=== PATIENT | female | born 1990 | race Caucasian/White ===

== ENCOUNTER 2023-05-02 20:57 | Emergency (ER) | payer BC, OTHER ==
[~2023-05-02] VITALS: Ht 177 cm; Wt 86.1 kg
[~2023-05-02 20:57] MED LIST: CIPR500T78 PO; HYDR-1231 PO
[2023-05-02] MEDS ORDERED: FAMOTIDINE INJ 20MG/2ML VIAL IVP STA (21:19)
[2023-05-02] MEDS ORDERED: ONDANSETRON INJECTION 4 MG/2 ML (SDV) IVP STA (21:19)
[2023-05-02] MEDS ORDERED: NS IV 1000 ML 1,000 ML IV STA ×2 (21:19→22:03)
--- NOTE | 2023-05-02 21:26 | ED General ---
General Stated Complaint: OB,VOMITING Source of Information: Patient History of Present Illness Date Seen by Provider: May 02, 2023 Time Seen by Provider: 20:59 Initial Comments 32-year-old female presenting with complaints of recurrent nausea and vomiting. She has some epigastric cramping now. She is approximately 11 weeks estimated gestational age G2, P1 with an estimated delivery date of November 17 through November 20. Her last menstrual cycle was February 14. She follows with maternal- medicine in [place]. She had been using some Zofran for nausea and vomiting during this but it caused her to be constipated so she stopped it. She was on a trip to [place] to fruit picker a trailer and on her way back she had been having recurrent nausea and vomiting and could not keep anything down. She did try the Zofran but it was not helping. She felt like she was getting dehydrated and was getting lightheaded and dizzy so she stopped here in [place] so that family could help watch her child and she came to the emergency department to be seen. She does have an appointment within the next 1 to 2 days with her maternal- OB doctor. She denies having any fever, chills, vaginal bleeding or spotting, pain with urination, diarrhea. Severity: Moderate Modifying Factors: worse with Eating Associated Systoms: No Chest Pain, No Cough, No Diaphoresis, No Fever/Chills, No Headaches, No Loss of Appetite, No Malaise; Nausea/Vomiting; No Rash, No Seizure, No Shortness of Air, No Syncope, No Weakness Allergies and Home Medications Allergies Coded Allergies: No Known Drug Allergies (Unverified , 06/12/14) Patient Home Medication List Home Medication List Reviewed: Yes Famotidine (Famotidine) 20 Mg Tablet, 20 MG PO DAILY Prescribed by: MARIA DEL CARMEN HALL on 05/02/232226 Metoclopramide HCl (Metoclopramide HCl) 10 Mg Tablet, 10 MG PO Q6H PRN for NAUSEA/VOMITING Prescribed by: MARIA DEL CARMEN HALL on 05/02/232226 Discontinued Medications Ciprofloxacin HCl (Cipro) 500 Mg Tablet, 500 MG PO BID Prescribed by: LAILA GRAVES on 06/12/14 0756 Hydrocodone Bit/Acetaminophen (Hydrocodone-Apap 5-325 Tablet) 1 Tab Tablet, 1-2 TAB PO Q6H PRN for PAIN Prescribed by: LAILA GRAVES on 06/12/14 0753 Review of Systems Review of Systems Constitutional: No chills, No fever EENTM: no symptoms reported Respiratory: no symptoms reported Cardiovascular: no symptoms reported Gastrointestinal: see HPI Genitourinary: no symptoms reported Musculoskeletal: no symptoms reported Skin: no symptoms reported Psychiatric/Neurological: No Symptoms Reported Past [id number]-[id number] Hx Patient Social History Tobacco Use?: No Use of E-Cig and/or Vaping dev: No Alcohol Use?: No Physical Exam Vital Signs Vital Signs - First Documented 05/02/23 21:58 Temp 37.1 Pulse 81 Resp 14 B/P (MAP) 122/69 (86) Pulse Ox 99 O2 Delivery Room Air Capillary Refill : Height, Weight, BMI Height: 5'11" Weight: 135lbs. oz. 61.987216ma; BMI Method: General Appearance: No Apparent Distress, WD/WN HEENT: PERRL/EOMI, Pharynx Normal; No Moist Mucous Membranes (Slightly dry mucous membranes) Neck: Full Range of Motion, Normal Inspection, Non Tender, Supple Respiratory: Chest Non Tender, Lungs Clear, Normal Breath Sounds, No Accessory Muscle Use, No Respiratory Distress Cardiovascular: Regular Rate, Rhythm, Normal Peripheral Pulses Gastrointestinal: Normal Bowel Sounds, No Pulsatile Mass, Soft; No Distended, No Guarding; Tenderness (Mild tenderness in the epigastric area) Rectal: Deferred Extremity: Normal Capillary Refill, Normal Inspection, No Pedal Edema Neurologic/Psychiatric: Alert, Oriented x3, saw repairer II-XII Norm as Tested Skin: Normal Color, Warm/Dry Progress/Results/Core Measures Suspected Sepsis SIRS Temperature: Pulse: Respiratory Rate: Laboratory Tests 05/02/23 21:25: White Blood Count 15.3H Blood Pressure / Mean: Laboratory Tests 05/02/23 21:25: Creatinine 0.61, Platelet Count 303, Total Bilirubin 0.4 Results/Orders Lab Results Laboratory Tests Test 05/02/23 21:10 05/02/23 21:25 Range/Units Urine Color YELLOW Urine Clarity CLEAR Urine pH 5.5 5-9 Urine Specific [place] >=1.030 1.016-1.022 Urine Protein TRACE H NEGATIVE Urine Glucose (UA) NEGATIVE NEGATIVE Urine Ketones 1+ H NEGATIVE Urine Nitrite NEGATIVE NEGATIVE Urine Bilirubin NEGATIVE NEGATIVE Urine Urobilinogen 0.2 < = 1.0 MG/DL Urine Leukocyte Esterase NEGATIVE NEGATIVE Urine RBC (Auto) 1+ H NEGATIVE Urine RBC 2-5 H /HPF Urine WBC NONE /HPF Urine Squamous Epithelial Cells 25-50 H /HPF Urine Crystals NONE /LPF Urine Bacteria FEW H /HPF Urine Casts NONE /LPF Urine Mucus SMALL H /LPF Urine Culture Indicated NO White Blood Count 15.3 H 4.3-11.0 10^3/uL Red Blood Count 4.51 3.80-5.11 10^6/uL Hemoglobin 13.6 11.5-16.0 g/dL Hematocrit 40 35-52 % Mean Corpuscular Volume 89 80-99 fL Mean Corpuscular Hemoglobin 30 25-34 pg Mean Corpuscular Hemoglobin Concent 34 32-36 g/dL Red Cell Distribution Width 12.1 10.0-14.5 % Platelet Count 303 130-400 10^3/uL Mean Platelet Volume 9.3 9.0-12.2 fL Immature Granulocyte % (Auto) 1 % Neutrophils (%) (Auto) 91 H 42-75 % Lymphocytes (%) (Auto) 4 L 12-44 % Monocytes (%) (Auto) 4 0-12 % Eosinophils (%) (Auto) 0 0-10 % Basophils (%) (Auto) 0 0-10 % Neutrophils # (Auto) 13.9 H 1.8-7.8 10^3/uL Lymphocytes # (Auto) 0.7 L 1.0-4.0 10^3/uL Monocytes # (Auto) 0.6 0.0-1.0 10^3/uL Eosinophils # (Auto) 0.0 0.0-0.3 10^3/uL Basophils # (Auto) 0.0 0.0-0.1 10^3/uL Immature Granulocyte # (Auto) 0.1 0.0-0.1 10^3/uL Neutrophils % (Manual) 92 % Lymphocytes % (Manual) 3 % Monocytes % (Manual) 5 % Platelet Estimate ADEQUATE Blood Morphology Comment OK Sodium Level 138 135-145 MMOL/L Potassium Level 3.7 3.6-5.0 MMOL/L Chloride Level 103 98-107 MMOL/L Carbon Dioxide Level 24 21-32 MMOL/L Anion Gap 11 5-14 MMOL/L Blood Urea Nitrogen 11 7-18 MG/DL Creatinine 0.61 0.60-1.30 MG/DL Estimat Glomerular Filtration Rate 122 BUN/Creatinine Ratio 18 Glucose Level 104 70-105 MG/DL Calcium Level 9.0 8.5-10.1 MG/DL Corrected Calcium 8.7 8.5-10.1 MG/DL Total Bilirubin 0.4 0.1-1.0 MG/DL Aspartate Amino Transf (AST/SGOT) 14 5-34 U/L Alanine Aminotransferase (ALT/SGPT) 11 0-55 U/L Alkaline Phosphatase 60 40-136 U/L Total Protein 7.8 6.4-8.2 GM/DL Albumin 4.4 3.2-4.5 GM/DL Lipase 21 8-78 U/L My Orders Orders - MARIA DEL CARMEN HALL MD Comprehensive Metabolic Panel (05/02/23 21:19) Lipase (05/02/23 21:19) Ua Culture If Indicated (05/02/23 21:19) Ed Iv/Invasive Line Start (05/02/23 21:19) Cbc And Automated Diff (05/02/23 21:19) Ns Iv 1000 Ml (Ns Iv 1000 Ml) (05/02/23 21:19) Ondansetron Injection (Ondansetron Inj (05/02/23 21:19) Famotidine Injection (Famotidine Injec (05/02/23 21:19) Manual Differential (05/02/23 21:25) Metoclopramide Injection (Metoclopramide (05/02/23 22:02) Ns Iv 1000 Ml (Ns Iv 1000 Ml) (05/02/23 22:03) Rx-Metoclopramide Tab (Rx-Reglan Tab) (05/02/23 22:35) Vital Signs/I&O 05/02/23 21:58 Temp 37.1 Pulse 81 Resp 14 B/P (MAP) 122/69 (86) Pulse Ox 99 O2 Delivery Room Air Capillary Refill : Progress Note #1: Progress Note Differential diagnosis includes UTI during , nausea vomiting hyperemesis due to , gastroenteritis. Establish peripheral IV access and send labs for complete blood count, compre hensive metabolic profile, lipase, urinalysis. Administer normal saline 1 L IV fluid bolus for hydration. Zofran 4 mg IV for nausea and vomiting, famotidine 20 mg IV to try and help with epigastric pain and likely gastritis. If not having improvement with IV Zofran will consider changing to a different antiemetic. Progress Note #2: Time: 22:00 Progress Note Labs and urinalysis are stable without evidence of acute infection or electrolyte imbalance. She does have elevation of her white blood cell count of 15.3 which may be partially due to stress of recurrent vomiting as well as pre gnancy and some hemoconcentration. She reports feeling better as the fluids have infused as well as getting a dose of the Zofran. She has not had any vomiting here in the ED. Will add on a second liter of IV fluids to try and help with hydration as well as ordering metoclopramide 10 mg IV to try and help with her nausea and vomiting and motility. She felt like the burning pain in the epigastric area was doing better after she received the Pepcid as well. Provided she does well as the fluids finished infusing and she has the Reglan on board will plan on discharging to home with prescription for Reglan and Pepcid. Have her keep her appointment in the next 1 to 2 days with her [facility]. Departure Impression Primary Impression: Hyperemesis affecting , antepartum Additional Impression: Constipation during in first trimester Disposition: HOME, SELF-CARE Condition: Improved Departure-Patient Inst. Decision time for Depature: 22:23 Referrals: NO,LOCAL PHYSICIAN (PCP/Family) Primary Care Physician Patient Instructions: Constipation, Adult ED, Hyperemesis Gravidarum (DC), Morning Sickness ED Add. Discharge Instructions: Try to keep sipping on fluids to stay hydrated. You could try using the metoclopramide or Reglan to see if that works better as a nausea medicine as well as a motility agent to help with your constipation. Try to drink apple juice and prune juice to help with the constipation. Continue to take the MiraLAX and check back with your OB doctor about any further treatments. Keep your appointment with OB doctor within the next 1 to 2 days. Scripts Metoclopramide HCl (Metoclopramide HCl) 10 Mg Tablet 10 MG PO Q6H PRN for NAUSEA/VOMITING for 5 Days, #20 TAB 0 Refills Prov: MARIA DEL CARMEN HALL MD 05/02/23 Famotidine (Famotidine) 20 Mg Tablet 20 MG PO DAILY for Gastritis for 30 Days, #30 TAB 0 Refills Prov: MARIA DEL CARMEN HALL MD 05/02/23 MARIA DEL CARMEN HALL MD May 02, 2023 21:25
[2023-05-02 21:34] LABS: BASOPHILS % (AUTO) 0 % (0-10); EOSINOPHILS % (AUTO) 0 % (0-10); HEMATOCRIT 40 % (35-52); HEMOGLOBIN 13.6 g/dL (11.5-16.0); LYMPHOCYTES # (AUTO) 0.7 10^3/uL (1.0-4.0); LYMPHOCYTES % (AUTO) 4 % (12-44); MEAN CORPUSCULAR HEMOGLOBIN 30 pg (25-34); MEAN CORPUSCULAR HGB CONC 34 g/dL (32-36); MEAN CORPUSCULAR VOLUME 89 fL (80-99); MEAN PLATELET VOLUME 9.3 fL (9.0-12.2); MONOCYTES # (AUTO) 0.6 10^3/uL (0.0-1.0); MONOCYTES % (AUTO) 4 % (0-12); NEUTROPHILS # (AUTO) 13.9 10^3/uL (1.8-7.8); NEUTROPHILS % (AUTO) 91 % (42-75); PLATELET COUNT 303 10^3/uL (130-400); WHITE BLOOD COUNT 15.3 10^3/uL (4.3-11.0)
[2023-05-02 21:35] LABS: BILIRUBIN,URINE NEGATIVE (NEGATIVE); CLARITY,URINE CLEAR; COLOR,URINE YELLOW; GLUCOSE, URINE (UA) NEGATIVE (NEGATIVE); KETONES,URINE 1+ (NEGATIVE); LEUKOCYTE ESTERASE ,URINE NEGATIVE (NEGATIVE); NITRITE,URINE NEGATIVE (NEGATIVE); PH,URINE 5.5 (5-9); PROTEIN,URINE TRACE (NEGATIVE)
[2023-05-02 21:46] LABS: BILIRUBIN,TOTAL 0.4 MG/DL (0.1-1.0); POTASSIUM 3.7 MMOL/L (3.6-5.0); TOTAL PROTEIN 7.8 GM/DL (6.4-8.2)
[2023-05-02 21:47] LABS: BACTERIA,URINE FEW /HPF; SQUAMOUS EPITHELIAL CELL,UR 25-50 /HPF
[2023-05-02 21:57] LABS: LYMPHOCYTES % (MANUAL) 3 %; MONOCYTES % (MANUAL) 5 %; NEUTROPHILS % (MANUAL) 92 %; PLATELET ESTIMATE ADEQUATE; RBC MORPH OK
[2023-05-02 21:58] VITALS: BP 122/69
[2023-05-02 21:58] LABS: ALBUMIN 4.4 GM/DL (3.2-4.5); CREATININE SERUM 0.61 MG/DL (0.60-1.30)
[2023-05-02] MEDS ORDERED: METOCLOPRAMIDE INJ 10 MG/2 ML IVP STA (22:02)
[2023-05-02] MEDS ORDERED: FAMO20TA5 PO (22:27)
[2023-05-02] MEDS ORDERED: MTC10T PO (22:27)
[2023-05-02] MEDS ORDERED: RX-METOCLOPRAMIDE 5 MG (REGLAN) TAB PPK#8 PO STA ×2 (22:29→22:35)
== END 2023-05-02 22:45 | disposition home or self-care (01) ==
LOC: EDUNIT# 20:57 → ER FS 20:59
DX: O21.0 Mild hyperemesis gravidarum (principal); O99.611 Diseases of the digestive system complicating pregnancy, first trimester; K59.00 Constipation, unspecified; Z3A.11 11 weeks gestation of pregnancy
CPT/HCPCS: 36415; 80053; 81000; 83690; 85007; 85027; 96361; 96374; 96375